=== PATIENT | male | born 2000 | race Hispanic/Latino ===

== ENCOUNTER → 2024-10-31 | Day surgery (SDC) | payer OTHER ==
[~2024-10-31] MED LIST: LIDOCAINE HCL 2% LOCAL INJ 5 ML SDV VIAL INJ ONE; METOCLOPRAMIDE HCL 10 MG/2ML VIAL ONE; MIDAZOLAM HCL 2 MG/2 ML VIAL ONE; MULTI-VITAMIN1 EACH PO; PROPOFOL IV EMULSION 10 MG/ML 20 ML VIAL ONE; PROTONIX20 MG PO
[2024-10-31] MEDS: LACTATED RINGER'S 1,000 ML ONE (15:38)
[2024-10-31 16:04] VITALS: TEMP 97.2
[2024-10-31 16:35] VITALS: BP 125/69; PULSE 79; RESP 16; O2SAT 98
== END | disposition home or self-care (01) ==
LOC: OR 15:13
PROVIDERS: ATTEND Internal Medicine Gastroenterology
DX: K29.60 Other gastritis without bleeding (principal); K29.50 Unspecified chronic gastritis without bleeding; K22.89 Other specified disease of esophagus; K31.89 Other diseases of stomach and duodenum; K21.9 Gastro-esophageal reflux disease without esophagitis; K20.90 Esophagitis, unspecified without bleeding; K44.9 Diaphragmatic hernia without obstruction or gangrene; R01.1 Cardiac murmur, unspecified; E66.9 Obesity, unspecified; Z71.89 Other specified counseling; Z68.31 Body mass index [BMI] 31.0-31.9, adult; Z71.3 Dietary counseling and surveillance
CPT/HCPCS: 43239; J2003; J2250; J2470; J2765